=== PATIENT | male | born 1985 | race Hispanic/Latino ===

== ENCOUNTER 2017-09-18 16:44 | Emergency (ER) | payer OTHER ==
[~2017-09-18] VITALS: Ht 177.8 cm; Wt 91.1 kg
[2017-09-18] MEDS ORDERED: NAPROXEN500 MG PO (19:23)
[2017-09-18 19:29] VITALS: BP 150/90
== END 2017-09-18 19:31 | disposition home or self-care (01) ==
LOC: EME 16:44
DX: S43.51XA Sprain of right acromioclavicular joint, initial encounter (principal); X58.XXXA Exposure to other specified factors, initial encounter
CPT/HCPCS: 73030; 99281; 99284